=== PATIENT | male | born 1945 | race Caucasian/White ===

== ENCOUNTER 2020-04-20 06:06 | Inpatient (IN) | payer MEDICARE ==
[2020-04-20] VITALS (14 sets, daily range): BP systolic 114–147; BP diastolic 60–75
[~2020-04-20] VITALS: Ht 177.8 cm; Wt 73.4 kg
--- NOTE | 2020-04-20 06:19 | NUR ---
Provider at bedside
--- NOTE | 2020-04-20 06:19 | NUR ---
Note undone in EDM - 04/20/20 at 0623 by KASH Alert, answering questions appropriately. Pt presents to ED seeking help with detoxing. Pt states increased ETOH use x months r/t being out of work d/t COVID. States he drinks 1+ liters of hard alcohol daily. Last drink ~1 hour ago. Pt states he wants to return to work and stop drinking, hx of ETOH withdrawal, unknown seizure hx. C/o POTTER, tremors, and mild nausea with associated dry heaves. Denies chest pain. Denies SOB. Denies abd pain. Denies fever/chills. Ambulating independently, steady gait.
--- NOTE | 2020-04-20 06:23 | NUR ---
Arrives as tx from [facility] via [facility]. Per EMS, pt had NSTEMI and GIB "a few weeks ago." Presented to [facility] last night with sudden onset, nonradiating L-sided chest pain starting at approx 1500 yesterday with associated SOB. H&H found to be low at OSH, given 1 unit PRBC. Initial troponin found to be 0.05, 2nd trop 0.1. Pt denies chest pain/abd pain at this time. Denies SOB, fever/chills, N/V/D.
--- NOTE | 2020-04-20 06:30 | NUR ---
No BP/blood draws in L arm d/t dialysis fistula. Pt states he has been on dialysis x3 years
--- NOTE | 2020-04-20 06:58 | NUR ---
report received from azalea aguirre.
--- NOTE | 2020-04-20 07:23 | NUR ---
pt stated "i take some medications, but i don't remember any of these names."
[2020-04-20] MEDS ORDERED: SODIUM CHLORIDE 0.9% 1,000 ML IV SCH (07:53)
--- NOTE | 2020-04-20 07:53 | NUR ---
Medical records requested from [facility].
[2020-04-20] MEDS ORDERED: DOCUSATE 100 MG CAPSULE PO PRN (08:00)
[2020-04-20] MEDS ORDERED: ONDANSETRON 2MG/ML, 2ML IVPush PRN (08:00)
[2020-04-20] MEDS ORDERED: ONDANSETRON ODT 4 MG PO PRN (08:00)
[2020-04-20] MEDS ORDERED: morphine SULFATE 10 MG/ML, 1ML IVPush PRN (08:00)
[2020-04-20] MEDS ORDERED: ACETAMINOPHEN 325 MG TABLET PO PRN (08:00)
[2020-04-20] MEDS ORDERED: hydrALAzine 20 MG/ML, 1ML IVPush PRN (08:00)
[2020-04-20] MEDS ORDERED: ENALAPRILAT 1.25 MG/ML, 2ML IVPush PRN (08:00)
[2020-04-20] MEDS ORDERED: LABETALOL 5MG/ML, 20ML IVPush PRN (08:00)
--- NOTE | 2020-04-20 08:11 | NUR ---
report given to yobany aguirre. all questions answered.
[2020-04-20 08:39] LABS: MEAN CORPUSCULAR HEMOGLOBIN 31.9 pg (27.5-34.5); MEAN CORPUSCULAR HGB CONC 32.3 g/dL (33.2-36.2); MEAN CORPUSCULAR VOLUME 98.5 fL (81-97); MEAN PLATELET VOLUME 7.6 fL (7.4-10.4); PLATELET COUNT 213 x10^3/uL (130-400); RED CELL DISTRIBUTION WIDTH 19.2 % (9.4-14.8)
[2020-04-20 08:57] LABS: MD YES
[2020-04-20] MEDS: SENNA/DOCUSATE TABLET PO SCH (09:00)
[2020-04-20 09:01] LABS: ANISOCYTOSIS 1+; EOS#(MANUAL) 0.14 x10^3/uL (0.0-0.4); EOS% (MANUAL) 2 % (1-7); LYMPHS% (MANUAL) 13 % (22-44); MONOS#(MANUAL) 0.35 x10^3/uL (0.3-2.7); MONOS% (MANUAL) 5 % (2-9); POLYCHROMASIA 1+; SEG#(MANUAL) 5.52 x10^3/uL (1.8-6.8); SEGS% (MANUAL) 80 % (42-75)
[2020-04-20 09:02] LABS: <PLATELET ESTIMATE> ADEQUATE; LARGE PLATELETS 1+
[2020-04-20] MEDS: PANTOPRAZOLE 40 MG IV IVPush SCH (10:18)
[2020-04-20] MEDS ORDERED: CLOP75TA PO (10:41)
[2020-04-20] MEDS ORDERED: APIX5TAB PO (10:41)
[2020-04-20] MEDS ORDERED: ASPI81TA45 PO (10:41)
[2020-04-20] MEDS ORDERED: ATOR-2 PO (12:11)
[2020-04-20] MEDS ORDERED: METO75TA PO (12:11)
[2020-04-20] MEDS ORDERED: TIOT18CA INH (12:11)
[2020-04-20 12:52] LABS: ANION GAP 7 mmol/L (5-15); CALCIUM 8.7 mg/dL (8.5-10.1); CHLORIDE 110 mmol/L (98-107); CREATININE 4.74 mg/dL (0.7-1.3)
[2020-04-20] MEDS: ATORVASTATIN 80 MG TABLET PO SCH (20:16)
[2020-04-21] VITALS (9 sets, daily range): BP systolic 111–152; BP diastolic 57–80
[2020-04-21 05:20] LABS: MEAN CORPUSCULAR HEMOGLOBIN 31.1 pg (27.5-34.5); MEAN CORPUSCULAR HGB CONC 32.8 g/dL (33.2-36.2); MEAN CORPUSCULAR VOLUME 94.8 fL (81-97); PLATELET COUNT 197 x10^3/uL (130-400); RED BLOOD COUNT 2.38 x10^6/uL (4.38-5.82); RED CELL DISTRIBUTION WIDTH 21.1 % (9.4-14.8)
[2020-04-21 05:22] LABS: ANION GAP 6 mmol/L (5-15); CALCIUM 8.4 mg/dL (8.5-10.1); CHLORIDE 110 mmol/L (98-107)
[2020-04-21 05:23] LABS: CREATININE 5.83 mg/dL (0.7-1.3)
[2020-04-21 05:54] LABS: BASOPHILS # (AUTO) 0.03 x10^3/uL (0-0.1); BASOPHILS % (AUTO) 0 % (0-1); EOSINOPHILS # (AUTO) 0.79 x10^3/uL (0-0.4); EOSINOPHILS % (AUTO) 9 % (1-7); LYMPHOCYTES # (AUTO) 0.99 x10^3/uL (1-3.4); LYMPHOCYTES % (AUTO) 12 % (22-44); MD SCAN; MONOCYTES # (AUTO) 0.49 x10^3/uL (0.2-0.8); MONOCYTES % (AUTO) 6 % (2-9); NEUTROPHILS # (AUTO) 6.16 x10^3/uL (1.8-6.8); NEUTROPHILS % (AUTO) 73 % (42-75)
[2020-04-21] MEDS: ASPIRIN 81 MG TABLET EC PO SCH (08:17)
[2020-04-21] MEDS: TIOTROPIUM BROMIDE 18 MCG/INH INH SCH (08:17)
[2020-04-21] MEDS: SENNA/DOCUSATE TABLET PO SCH (08:18)
[2020-04-21] MEDS: CLOPIDOGREL 75 MG TABLET PO SCH (08:19)
[2020-04-21] MEDS: PANTOPRAZOLE 40 MG IV IVPush SCH (08:19)
[2020-04-21] MEDS ORDERED: GOLYTELY 4,000ML ORAL.SOL PO ONE (19:00)
[2020-04-21] MEDS: ATORVASTATIN 80 MG TABLET PO SCH (20:59)
[2020-04-22] VITALS (8 sets, daily range): BP systolic 130–155; BP diastolic 53–74
[2020-04-22 05:20] LABS: BASOPHILS # (AUTO) 0.04 x10^3/uL (0-0.1); BASOPHILS % (AUTO) 1 % (0-1); EOSINOPHILS % (AUTO) 13 % (1-7); LYMPHOCYTES # (AUTO) 0.81 x10^3/uL (1-3.4); LYMPHOCYTES % (AUTO) 13 % (22-44); MD NO; MEAN CORPUSCULAR HEMOGLOBIN 31.3 pg (27.5-34.5); MEAN CORPUSCULAR HGB CONC 32.8 g/dL (33.2-36.2); MEAN CORPUSCULAR VOLUME 95.5 fL (81-97); MEAN PLATELET VOLUME 7.9 fL (7.4-10.4); MONOCYTES # (AUTO) 0.47 x10^3/uL (0.2-0.8); MONOCYTES % (AUTO) 7 % (2-9); NEUTROPHILS # (AUTO) 4.29 x10^3/uL (1.8-6.8); NEUTROPHILS % (AUTO) 67 % (42-75); PLATELET COUNT 189 x10^3/uL (130-400); RED BLOOD COUNT 2.42 x10^6/uL (4.38-5.82); RED CELL DISTRIBUTION WIDTH 18.6 % (9.4-14.8)
[2020-04-22] MEDS: PANTOPRAZOLE 40MG TABLET PO SCH (05:36)
[2020-04-22 05:40] LABS: CHLORIDE 106 mmol/L (98-107)
[2020-04-22 05:53] LABS: ALBUMIN 2.1 g/dL (3.4-5.0); ANION GAP 4 mmol/L (5-15); CALCIUM 8.2 mg/dL (8.5-10.1); CREATININE 4.46 mg/dL (0.7-1.3)
[2020-04-22] MEDS: TIOTROPIUM BROMIDE 18 MCG/INH INH SCH (08:32)
[2020-04-22] MEDS: CLOPIDOGREL 75 MG TABLET PO SCH (08:33)
[2020-04-22] MEDS: ASPIRIN 81 MG TABLET EC PO SCH (08:33)
[2020-04-22] MEDS: SENNA/DOCUSATE TABLET PO SCH (08:33)
[2020-04-22] MEDS: ATORVASTATIN 80 MG TABLET PO SCH (19:46)
[2020-04-23 05:47] LABS: ALBUMIN 2.1 g/dL (3.4-5.0); CHLORIDE 108 mmol/L (98-107)
[2020-04-23 05:51] LABS: ANION GAP 8 mmol/L (5-15); CALCIUM 8.3 mg/dL (8.5-10.1); CREATININE 5.94 mg/dL (0.7-1.3)
[2020-04-23 05:59] VITALS: BP 127/72
[2020-04-23] MEDS: PANTOPRAZOLE 40MG TABLET PO SCH (06:00)
[2020-04-23 06:47] VITALS: BP 138/70
[2020-04-23] MEDS: ASPIRIN 81 MG TABLET EC PO SCH (09:42)
[2020-04-23] MEDS: CLOPIDOGREL 75 MG TABLET PO SCH (09:42)
[2020-04-23] MEDS: TIOTROPIUM BROMIDE 18 MCG/INH INH SCH (09:42)
[2020-04-23] MEDS: SENNA/DOCUSATE TABLET PO SCH (09:42)
[2020-04-23 12:16] VITALS: BP 143/69
[2020-04-23 18:43] VITALS: BP 151/63
[2020-04-23] MEDS: ATORVASTATIN 80 MG TABLET PO SCH (19:51)
[2020-04-24 02:36] VITALS: BP 133/64
[2020-04-24 06:42] VITALS: BP 164/70
[2020-04-24] MEDS: ASPIRIN 81 MG TABLET EC PO SCH (08:11)
[2020-04-24] MEDS: TIOTROPIUM BROMIDE 18 MCG/INH INH SCH (08:11)
[2020-04-24] MEDS: CLOPIDOGREL 75 MG TABLET PO SCH (08:11)
[2020-04-24] MEDS: SENNA/DOCUSATE TABLET PO SCH (08:12)
[2020-04-24 08:36] LABS: BASOPHILS # (AUTO) 0.01 x10^3/uL (0-0.1); BASOPHILS % (AUTO) 0 % (0-1); EOSINOPHILS # (AUTO) 0.77 x10^3/uL (0-0.4); EOSINOPHILS % (AUTO) 14 % (1-7); LYMPHOCYTES # (AUTO) 0.75 x10^3/uL (1-3.4); LYMPHOCYTES % (AUTO) 14 % (22-44); MD NO; MEAN CORPUSCULAR HGB CONC 32.2 g/dL (33.2-36.2); MEAN CORPUSCULAR VOLUME 96.3 fL (81-97); MEAN PLATELET VOLUME 7.9 fL (7.4-10.4); MONOCYTES # (AUTO) 0.41 x10^3/uL (0.2-0.8); MONOCYTES % (AUTO) 8 % (2-9); NEUTROPHILS # (AUTO) 3.46 x10^3/uL (1.8-6.8); NEUTROPHILS % (AUTO) 64 % (42-75); PLATELET COUNT 204 x10^3/uL (130-400); RED BLOOD COUNT 2.54 x10^6/uL (4.38-5.82); RED CELL DISTRIBUTION WIDTH 19.4 % (9.4-14.8)
[2020-04-24 08:45] LABS: ANION GAP 8 mmol/L (5-15); CALCIUM 8.9 mg/dL (8.5-10.1); CHLORIDE 113 mmol/L (98-107); CREATININE 7.63 mg/dL (0.7-1.3)
[2020-04-24] MEDS ORDERED: PANTOPRAZOLE 40MG TABLET PO SCH (09:00)
[2020-04-24] MEDS ORDERED: ARANESP 100 MCG/ML **ESRD SQ SCH (09:00)
[2020-04-24] MEDS ORDERED: METOPROLOL SUCCINATE 25 MG TAB.ER.24H PO SCH (10:00)
[2020-04-24 12:30] VITALS: BP 150/65
== END 2020-04-24 12:50 | disposition home or self-care (01) | DRG 377 ==
LOC: ED 06:23 → EDIP 07:07 → 5SO 08:23 → DCLOUNGE 04-24 12:45
PROVIDERS: ADMIT Family Medicine; ATTEND Family Medicine
PROC: 30233N1 Transfusion of Nonautologous Red Blood Cells into Peripheral Vein, Percutaneous Approach (ICD-10-PCS; principal; 2020-04-20)
PROC: 5A1D70Z Performance of Urinary Filtration, Intermittent, Less than 6 Hours Per Day (ICD-10-PCS; 2020-04-22)
PROC: 5A1D70Z Performance of Urinary Filtration, Intermittent, Less than 6 Hours Per Day (ICD-10-PCS; 2020-04-24)
DX: K57.91 Diverticulosis of intestine, part unspecified, without perforation or abscess with bleeding (principal); I21.4 Non-ST elevation (NSTEMI) myocardial infarction; N18.6 End stage renal disease; D62 Acute posthemorrhagic anemia; D68.69 Other thrombophilia; I13.2 Hypertensive heart and chronic kidney disease with heart failure and with stage 5 chronic kidney disease, or end stage renal disease; I50.20 Unspecified systolic (congestive) heart failure; D63.1 Anemia in chronic kidney disease; E11.22 Type 2 diabetes mellitus with diabetic chronic kidney disease; E78.5 Hyperlipidemia, unspecified; I07.1 Rheumatic tricuspid insufficiency; I25.10 Atherosclerotic heart disease of native coronary artery without angina pectoris; N40.0 Benign prostatic hyperplasia without lower urinary tract symptoms; K64.8 Other hemorrhoids; J44.9 Chronic obstructive pulmonary disease, unspecified; I35.0 Nonrheumatic aortic (valve) stenosis; K31.819 Angiodysplasia of stomach and duodenum without bleeding; I48.0 Paroxysmal atrial fibrillation; Z20.828 Contact with and (suspected) exposure to other viral communicable diseases; F17.200 Nicotine dependence, unspecified, uncomplicated; I25.2 Old myocardial infarction; Z99.2 Dependence on renal dialysis; Z79.82 Long term (current) use of aspirin; Z79.02 Long term (current) use of antithrombotics/antiplatelets; Z79.01 Long term (current) use of anticoagulants; Z95.5 Presence of coronary angioplasty implant and graft
CPT/HCPCS: 36415; 80048; 80069; 83735; 84484; 85014; 85018; 85025; 86706; 86850; 86900; 86923; 87340; 87635; 90935; 93005; 93306; G0378; J0882; C9113; J7030; P9016